=== PATIENT | female | born 1935 | race Caucasian/White ===

== ENCOUNTER 2017-09-29 22:03 | Emergency (ER) | payer OTHER ==
[~2017-09-29] VITALS: Ht 165.1 cm; Wt 60.6 kg
[2017-09-29 23:02] LABS: HEMATOCRIT 35.8 % (36.0-46.0); HEMOGLOBIN 12.2 G/DL (11.9-15.5); MCH 30.9 PG (29.0-34.0); MCHC 34.1 G/DL (30.0-36.0); MCV 90.6 FL (83-99); PLATELET COUNT 176 K/uL (156-360); RBC DIS.WIDTH-CV 13.4 % (11.8-14.6); RBC DIS.WIDTH-SD 44.8 % (39-53); RED BLOOD COUNT 3.95 M/uL (3.80-5.20); WHITE BLOOD COUNT 5.5 K/uL (4.1-10.2)
[2017-09-29 23:04] LABS: INTER. NORMALIZED RATIO 2.3
[2017-09-29 23:15] LABS: CHLORIDE 101 mEq/L (99-109); POTASSIUM 4.5 mEq/L (3.7-5.4); SODIUM 135 mEq/L (136-147)
[2017-09-29 23:17] LABS: GLUCOSE 117 mg/dL (70-99)
[2017-09-29 23:21] LABS: CREATININE 0.8 mg/dL (0.6-1.3); GFR ESTIMATE (CALCULATED) > 59 mL/min/
[2017-09-29 23:22] LABS: UREA NITROGEN (BUN) 17 mg/dL (9-23)
[2017-09-30 00:12] VITALS: BP 161/92
== END 2017-09-30 00:13 | disposition home or self-care (01) ==
LOC: EME 22:03
PROC: 0W3Q7ZZ Control Bleeding in Respiratory Tract, Via Natural or Artificial Opening (ICD-10-PCS; principal; 2017-09-29)
DX: R04.0 Epistaxis (principal); E03.9 Hypothyroidism, unspecified; I35.0 Nonrheumatic aortic (valve) stenosis; I48.91 Unspecified atrial fibrillation; Z79.01 Long term (current) use of anticoagulants; Z87.891 Personal history of nicotine dependence
CPT/HCPCS: 80048; 85027; 85610; 86850; 86900; 86901; 99281; 99283

== ENCOUNTER 2017-11-02 11:11 | Emergency (ER) | payer OTHER ==
[~2017-11-02] VITALS: Ht 165.1 cm; Wt 63.4 kg
[2017-11-02 14:31] VITALS: BP 164/76
== END 2017-11-02 14:49 | disposition home or self-care (01) ==
LOC: EME → EDBD 11:11 → EME 11:11
PROC: 0HQ1XZZ Repair Face Skin, External Approach (ICD-10-PCS; principal; 2017-11-02)
DX: S01.81XA Laceration without foreign body of other part of head, initial encounter (principal); S41.111A Laceration without foreign body of right upper arm, initial encounter; M25.511 Pain in right shoulder; W01.0XXA Fall on same level from slipping, tripping and stumbling without subsequent striking against object, initial encounter; Y92.512 Supermarket, store or market as the place of occurrence of the external cause; Z79.01 Long term (current) use of anticoagulants; Z87.891 Personal history of nicotine dependence
CPT/HCPCS: 70450; 73030; 73060; 73502; 99281; 99284

== ENCOUNTER 2017-11-12 15:34 | Inpatient (IN) | payer OTHER ==
[~2017-11-12] VITALS: Ht 165.1 cm; Wt 59.4 kg
[2017-11-12 16:19] LABS: HEMATOCRIT 34.2 % (36.0-46.0); HEMOGLOBIN 11.7 G/DL (11.9-15.5); MCH 30.5 PG (29.0-34.0); MCHC 34.2 G/DL (30.0-36.0); MCV 89.1 FL (83-99); PLATELET COUNT 193 K/uL (156-360); RBC DIS.WIDTH-CV 13.2 % (11.8-14.6); RBC DIS.WIDTH-SD 43.3 % (39-53); RED BLOOD COUNT 3.84 M/uL (3.80-5.20); WHITE BLOOD COUNT 6.4 K/uL (4.1-10.2)
[2017-11-12 16:27] LABS: ALBUMIN 3.9 g/dL (3.2-4.8); CHLORIDE 94 mEq/L (99-109); INTER. NORMALIZED RATIO 2.2; POTASSIUM 3.9 mEq/L (3.7-5.4); SODIUM 129 mEq/L (136-147)
[2017-11-12 16:29] LABS: GLUCOSE 99 mg/dL (70-99); TOTAL PROTEIN 7.3 g/dL (6.4-8.3)
[2017-11-12 16:31] LABS: TOTAL BILIRUBIN 0.5 mg/dL (0.0-1.0)
[2017-11-12 16:33] LABS: ALKALINE PHOSPHATASE 127 IU/L (3-129); CREATININE 0.7 mg/dL (0.6-1.3); GFR ESTIMATE (CALCULATED) > 59 mL/min/
[2017-11-12 16:34] LABS: UREA NITROGEN (BUN) 14 mg/dL (9-23)
[2017-11-12 16:35] LABS: AST (GOT) 15 IU/L (2-34)
[2017-11-12 16:36] LABS: ALT (GPT) 8 IU/L (3-49)
[2017-11-12] MEDS ORDERED: VERAPAMIL SR180 MG PO (16:42)
[2017-11-12] MEDS ORDERED: DIGOXIN125 MCG PO (16:43)
[2017-11-12] MEDS ORDERED: SERTRALINE HCL50 MG PO (16:43)
[2017-11-12] MEDS ORDERED: COUMADIN2 MG PO (16:58)
[2017-11-12] MEDS ORDERED: SYNTHROID100 MCG PO (17:01)
[2017-11-12] MEDS ORDERED: DIAZEPAM2 MG PO (17:01)
[2017-11-12 19:40] VITALS: BP 1160/74
[2017-11-12 20:41] LABS: HEMATOCRIT 34.2 % (36.0-46.0); HEMOGLOBIN 11.4 G/DL (11.9-15.5); MCH 29.8 PG (29.0-34.0); MCHC 33.3 G/DL (30.0-36.0); MCV 89.5 FL (83-99); PLATELET COUNT 205 K/uL (156-360); RBC DIS.WIDTH-CV 13.3 % (11.8-14.6); RBC DIS.WIDTH-SD 43.5 % (39-53); RED BLOOD COUNT 3.82 M/uL (3.80-5.20); WHITE BLOOD COUNT 5.4 K/uL (4.1-10.2)
[2017-11-12 21:01] LABS: TROP-I INTERPRETATION NEGATIVE; TROPONIN-I 0.09 ng/mL (0.0-0.30)
[2017-11-12 23:57] VITALS: BP 140/65
[2017-11-13 04:33] VITALS: BP 145/75
[2017-11-13 05:12] LABS: APPEARANCE CLEAR ((CLEAR)); BILIRUBIN NEGATIVE; BLOOD NEGATIVE; COLOR STRAW ((YELLOW)); GLUCOSE (STRIP) NEGATIVE; KETONES NEGATIVE; LEUKOCYTES NEGATIVE; NITRITE NEGATIVE; PROTEIN (STRIP) NEGATIVE; SPECIFIC GRAVITY 1.008 (1.000-1.030); UROBILINOGEN 0.2 MG/DL (0.2-1.0)
[2017-11-13 06:26] LABS: MCH 29.6 PG (29.0-34.0); MCHC 33.3 G/DL (30.0-36.0); MCV 88.7 FL (83-99); PLATELET COUNT 206 K/uL (156-360); RBC DIS.WIDTH-CV 13.3 % (11.8-14.6); RBC DIS.WIDTH-SD 43.5 % (39-53); RED BLOOD COUNT 3.72 M/uL (3.80-5.20)
[2017-11-13 06:50] LABS: CHLORIDE 101 MEQ/L (99-109); CREATININE 0.7 MG/DL (0.6-1.3); GFR ESTIMATE (CALCULATED) > 59 mL/min/; GLUCOSE 84 mg/dL (70-99); POTASSIUM 4.1 MEQ/L (3.7-5.4); SODIUM 134 MEQ/L (136-147); UREA NITROGEN (BUN) 14 mg/dL (9-23)
[2017-11-13 07:28] VITALS: BP 135/72
[2017-11-13 09:14] LABS: INTER. NORMALIZED RATIO 1.9
[2017-11-13 15:34] VITALS: BP 146/81
[2017-11-13 19:32] VITALS: BP 126/61
[2017-11-13 20:24] VITALS: BP 118/64
== END 2017-11-13 21:09 | disposition short-term general hospital (02) | DRG 536 ==
LOC: EME 15:34 → EDOF 16:45 → ENRESERV 16:58 → EDOF 18:51 → 3EAST 19:17
PROVIDERS: Hospitalist; Nurse Practitioner Family; Orthopaedic Surgery
DX: S72.001A Fracture of unspecified part of neck of right femur, initial encounter for closed fracture (principal); Z53.09 Procedure and treatment not carried out because of other contraindication; W18.30XA Fall on same level, unspecified, initial encounter; I48.2 Chronic atrial fibrillation; I27.20 Pulmonary hypertension, unspecified; I35.0 Nonrheumatic aortic (valve) stenosis; I10 Essential (primary) hypertension; D18.1 Lymphangioma, any site; E03.9 Hypothyroidism, unspecified; D64.9 Anemia, unspecified; F41.9 Anxiety disorder, unspecified; F32.9 Major depressive disorder, single episode, unspecified; Y92.512 Supermarket, store or market as the place of occurrence of the external cause; Z79.01 Long term (current) use of anticoagulants; Z87.442 Personal history of urinary calculi; Z87.891 Personal history of nicotine dependence
CPT/HCPCS: 70450; 71045; 72125; 72141; 80048; 80053; 80162; 81003; 82436; 83880; 83930; 84133; 84300; 84484; 85027; 85610; 85730; 86850; 86900; 86901; 93005; 93970; 99281; 99284; J0131; J0330; J3010; J7040

== ENCOUNTER 2017-12-05 11:16 | Inpatient (IN) | payer OTHER ==
[2017-12-05] VITALS (9 sets, daily range): BP systolic 112–169; BP diastolic 75–120
[~2017-12-05] VITALS: Ht 165.1 cm; Wt 67.1 kg
[~2017-12-05 11:16] MED LIST: CALAN SR,COVER180 MG PO; COUMADIN2 MG PO; DIAZEPAM2 MG PO; DIGOXIN125 MCG PO; SERTRALINE HCL50 MG PO; SYNTHROID100 MCG PO
[2017-12-05 11:57] LABS: INTER. NORMALIZED RATIO 3.6
[2017-12-05 12:00] LABS: PTT 42.9 SEC (25-37)
[2017-12-05 12:23] LABS: BASOPHIL (%) 0.2 % (0-1); EOSINOPHIL (%) 0.7 % (0-5); EOSINOPHIL COUNT 0.1 K/uL (0-0.3); HEMATOCRIT 26.5 % (36.0-46.0); IMMATURE GRANULOCYTE (%) 1.1 % (0.0-0.7); LYMPHOCYTE (%) 4.7 % (15-42); LYMPHOCYTE COUNT 0.6 K/uL (1.0-2.8); MCH 30.2 PG (29.0-34.0); MCV 88.9 FL (83-99); MONOCYTE (%) 7.2 % (3-12); MONOCYTE COUNT 0.9 K/uL (0-0.8); NEUTROPHIL (%) 86.1 % (45-76); NEUTROPHIL COUNT 10.4 K/uL (1.8-6.4); PLATELET COUNT 197 K/uL (156-360); RBC DIS.WIDTH-CV 14.3 % (11.8-14.6); RED BLOOD COUNT 2.98 M/uL (3.80-5.20); WHITE BLOOD COUNT 12.1 K/uL (4.1-10.2)
[2017-12-05 12:24] LABS: CHLORIDE 89 mEq/L (99-109); POTASSIUM 4.3 mEq/L (3.7-5.4); SODIUM 122 mEq/L (136-147)
[2017-12-05 12:26] LABS: GLUCOSE 110 mg/dL (70-99)
[2017-12-05 12:30] LABS: CREATININE 0.9 mg/dL (0.6-1.3); GFR ESTIMATE (CALCULATED) > 59 mL/min/
[2017-12-05 12:31] LABS: UREA NITROGEN (BUN) 18 mg/dL (9-23)
[2017-12-05 15:37] LABS: PTT 34.9 SEC (25-37)
[2017-12-05 15:40] LABS: INTER. NORMALIZED RATIO 1.3
[2017-12-05] MEDS ORDERED: LOVENOX30 MG/0.3 SC (15:52)
[2017-12-05] MEDS ORDERED: CALCIUM600 M1 PO (15:53)
[2017-12-05] MEDS ORDERED: COLACE100 MG PO (15:53)
[2017-12-05] MEDS ORDERED: VITAMIN B-12500 MC5 SL (15:53)
[2017-12-05] MEDS ORDERED: FERROUS SULFAT325 MG PO (15:55)
[2017-12-05] MEDS ORDERED: HYDRALAZINE HCL25 MG PO (15:56)
[2017-12-05] MEDS ORDERED: LASIX20 MG PO (15:57)
[2017-12-05] MEDS ORDERED: MIRALAX119 GM PO (15:57)
[2017-12-05] MEDS ORDERED: OXYCODONE HCL5 MG PO (15:58)
[2017-12-05] MEDS ORDERED: SENNA8.6 MG PO (15:58)
[2017-12-05] MEDS ORDERED: DULCOLAX10 MG PR (15:59)
[2017-12-05] MEDS ORDERED: TYLENOL REGULA325 MG PO (15:59)
[2017-12-05] MEDS ORDERED: PHILLIPS'400 MG/5 M PO (16:00)
[2017-12-05] MEDS ORDERED: ERGOCALCIF50000 UNIT PO (16:07)
[2017-12-05 18:53] LABS: CHLORIDE 91 MEQ/L (99-109); CREATININE 0.8 MG/DL (0.6-1.3); GFR ESTIMATE (CALCULATED) > 59 mL/min/; GLUCOSE 100 mg/dL (70-99); POTASSIUM 4.2 MEQ/L (3.7-5.4); SODIUM 122 MEQ/L (136-147); UREA NITROGEN (BUN) 17 mg/dL (9-23)
[2017-12-05 19:51] LABS: CHLORIDE 90 MEQ/L (99-109); CREATININE 0.8 MG/DL (0.6-1.3); GFR ESTIMATE (CALCULATED) > 59 mL/min/; GLUCOSE 94 mg/dL (70-99); POTASSIUM 4.3 MEQ/L (3.7-5.4); SODIUM 123 MEQ/L (136-147); UREA NITROGEN (BUN) 17 mg/dL (9-23)
[2017-12-05 23:30] LABS: INTER. NORMALIZED RATIO 1.2
[2017-12-06] VITALS (24 sets, daily range): BP systolic 93–127; BP diastolic 58–76
[2017-12-06 05:35] LABS: HEMATOCRIT 25.8 % (36.0-46.0); HEMOGLOBIN 8.7 G/DL (11.9-15.5); MCH 30.2 PG (29.0-34.0); MCHC 33.7 G/DL (30.0-36.0); MCV 89.6 FL (83-99); PLATELET COUNT 205 K/uL (156-360); RBC DIS.WIDTH-CV 14.5 % (11.8-14.6); RBC DIS.WIDTH-SD 46.4 % (39-53); RED BLOOD COUNT 2.88 M/uL (3.80-5.20); WHITE BLOOD COUNT 17.3 K/uL (4.1-10.2)
[2017-12-06 05:50] LABS: INTER. NORMALIZED RATIO 1.1
[2017-12-06 05:51] LABS: TROP-I INTERPRETATION NEGATIVE; TROPONIN-I 0.14 ng/mL (0.0-0.30)
[2017-12-06 06:02] LABS: CHLORIDE 92 MEQ/L (99-109); CREATININE 0.9 MG/DL (0.6-1.3); GFR ESTIMATE (CALCULATED) > 59 mL/min/; MAGNESIUM 1.8 mg/dl (1.3-2.7); PHOSPHORUS 4.3 mg/dL (2.5-4.9); POTASSIUM 4.2 MEQ/L (3.7-5.4); SODIUM 129 MEQ/L (136-147); UREA NITROGEN (BUN) 16 mg/dL (9-23)
[2017-12-06 06:06] LABS: GLUCOSE 149 mg/dL (70-99)
[2017-12-06 12:48] LABS: TROP-I INTERPRETATION NEGATIVE; TROPONIN-I 0.15 ng/mL (0.0-0.30)
[2017-12-06 18:56] LABS: TROP-I INTERPRETATION NEGATIVE; TROPONIN-I 0.14 ng/mL (0.0-0.30)
[2017-12-06 21:25] LABS: CHLORIDE 95 MEQ/L (99-109); CREATININE 0.8 MG/DL (0.6-1.3); GFR ESTIMATE (CALCULATED) > 59 mL/min/; GLUCOSE 132 mg/dL (70-99); POTASSIUM 4.7 MEQ/L (3.7-5.4); SODIUM 130 MEQ/L (136-147); UREA NITROGEN (BUN) 16 mg/dL (9-23)
[2017-12-07] VITALS (18 sets, daily range): BP systolic 88–119; BP diastolic 53–86
[2017-12-07 00:47] LABS: CHLORIDE 96 mEq/L (99-109); POTASSIUM 4.4 mEq/L (3.7-5.4); SODIUM 127 mEq/L (136-147)
[2017-12-07 00:49] LABS: GLUCOSE 112 mg/dL (70-99)
[2017-12-07 00:53] LABS: CREATININE 0.7 mg/dL (0.6-1.3); GFR ESTIMATE (CALCULATED) > 59 mL/min/; UREA NITROGEN (BUN) 18 mg/dL (9-23)
[2017-12-07 07:07] LABS: BASOPHIL (%) 0.3 % (0-1); EOSINOPHIL (%) 0.6 % (0-5); EOSINOPHIL COUNT 0.1 K/uL (0-0.3); HEMATOCRIT 24.9 % (36.0-46.0); HEMOGLOBIN 8.1 G/DL (11.9-15.5); IMMATURE GRANULOCYTE (%) 0.8 % (0.0-0.7); LYMPHOCYTE (%) 6.4 % (15-42); LYMPHOCYTE COUNT 0.8 K/uL (1.0-2.8); MCH 29.7 PG (29.0-34.0); MCHC 32.5 G/DL (30.0-36.0); MCV 91.2 FL (83-99); MONOCYTE (%) 8.5 % (3-12); MONOCYTE COUNT 1.1 K/uL (0-0.8); NEUTROPHIL (%) 83.4 % (45-76); NEUTROPHIL COUNT 10.7 K/uL (1.8-6.4); PLATELET COUNT 190 K/uL (156-360); RBC DIS.WIDTH-CV 15.1 % (11.8-14.6); RBC DIS.WIDTH-SD 49.1 % (39-53); RED BLOOD COUNT 2.73 M/uL (3.80-5.20); WHITE BLOOD COUNT 12.8 K/uL (4.1-10.2)
[2017-12-07 07:17] LABS: INTER. NORMALIZED RATIO 1.2
[2017-12-07 07:20] LABS: PTT 25.6 SEC (25-37)
[2017-12-07 07:29] LABS: CHLORIDE 96 MEQ/L (99-109); CREATININE 0.7 MG/DL (0.6-1.3); GFR ESTIMATE (CALCULATED) > 59 mL/min/; GLUCOSE 102 mg/dL (70-99); MAGNESIUM 1.8 mg/dl (1.3-2.7); POTASSIUM 4.3 MEQ/L (3.7-5.4); SODIUM 131 MEQ/L (136-147); UREA NITROGEN (BUN) 16 mg/dL (9-23)
[2017-12-07 07:30] LABS: PHOSPHORUS 2.7 mg/dL (2.5-4.9)
[2017-12-07 17:20] LABS: CHLORIDE 97 MEQ/L (99-109); CREATININE 0.7 MG/DL (0.6-1.3); GFR ESTIMATE (CALCULATED) > 59 mL/min/; GLUCOSE 94 mg/dL (70-99); POTASSIUM 4.1 MEQ/L (3.7-5.4); SODIUM 131 MEQ/L (136-147); UREA NITROGEN (BUN) 15 mg/dL (9-23)
[2017-12-08] VITALS (8 sets, daily range): BP systolic 96–132; BP diastolic 50–77
[2017-12-08 05:22] LABS: HEMATOCRIT 24.3 % (36.0-46.0); HEMOGLOBIN 7.9 G/DL (11.9-15.5); MCH 29.9 PG (29.0-34.0); MCHC 32.5 G/DL (30.0-36.0); PLATELET COUNT 193 K/uL (156-360); RBC DIS.WIDTH-CV 15.6 % (11.8-14.6); RBC DIS.WIDTH-SD 50.6 % (39-53); RED BLOOD COUNT 2.64 M/uL (3.80-5.20); WHITE BLOOD COUNT 11.2 K/uL (4.1-10.2)
[2017-12-08 05:53] LABS: CHLORIDE 98 MEQ/L (99-109); CREATININE 0.6 MG/DL (0.6-1.3); GFR ESTIMATE (CALCULATED) > 59 mL/min/; GLUCOSE 102 mg/dL (70-99); MAGNESIUM 1.9 mg/dl (1.3-2.7); PHOSPHORUS 1.9 mg/dL (2.5-4.9); POTASSIUM 4.1 MEQ/L (3.7-5.4); SODIUM 132 MEQ/L (136-147); UREA NITROGEN (BUN) 14 mg/dL (9-23)
[2017-12-08 05:55] LABS: INTER. NORMALIZED RATIO 1.6
[2017-12-08 19:11] LABS: CHLORIDE 98 MEQ/L (99-109); CREATININE 0.8 MG/DL (0.6-1.3); GFR ESTIMATE (CALCULATED) > 59 mL/min/; SODIUM 131 MEQ/L (136-147); UREA NITROGEN (BUN) 14 mg/dL (9-23)
[2017-12-08 19:14] LABS: GLUCOSE 164 mg/dL (70-99)
[2017-12-09] VITALS (7 sets, daily range): BP systolic 113–136; BP diastolic 64–89
[2017-12-09 05:27] LABS: HEMATOCRIT 25.6 % (36.0-46.0); HEMOGLOBIN 8.4 G/DL (11.9-15.5); MCH 30.3 PG (29.0-34.0); MCHC 32.8 G/DL (30.0-36.0); MCV 92.4 FL (83-99); PLATELET COUNT 199 K/uL (156-360); RBC DIS.WIDTH-CV 15.7 % (11.8-14.6); RBC DIS.WIDTH-SD 51.6 % (39-53); RED BLOOD COUNT 2.77 M/uL (3.80-5.20); WHITE BLOOD COUNT 13.7 K/uL (4.1-10.2)
[2017-12-09 05:39] LABS: INTER. NORMALIZED RATIO 2.5
[2017-12-09 06:16] LABS: CHLORIDE 96 MEQ/L (99-109); CREATININE 0.7 MG/DL (0.6-1.3); GFR ESTIMATE (CALCULATED) > 59 mL/min/; MAGNESIUM 1.8 mg/dl (1.3-2.7); PHOSPHORUS 1.8 mg/dL (2.5-4.9); POTASSIUM 3.9 MEQ/L (3.7-5.4); SODIUM 133 MEQ/L (136-147); UREA NITROGEN (BUN) 11 mg/dL (9-23)
[2017-12-09 06:19] LABS: GLUCOSE 118 mg/dL (70-99)
[2017-12-10 03:09] LABS: HEMATOCRIT 25.1 % (36.0-46.0); HEMOGLOBIN 8.4 G/DL (11.9-15.5); MCH 30.3 PG (29.0-34.0); MCHC 33.5 G/DL (30.0-36.0); MCV 90.6 FL (83-99); PLATELET COUNT 190 K/uL (156-360); RBC DIS.WIDTH-CV 15.3 % (11.8-14.6); RBC DIS.WIDTH-SD 50.4 % (39-53); RED BLOOD COUNT 2.77 M/uL (3.80-5.20); WHITE BLOOD COUNT 13.8 K/uL (4.1-10.2)
[2017-12-10 03:11] LABS: COMMENTS - BLOOD GASES C+A+; DEVICE HFC; O2 FLOW 7 L/MIN; SITE RR; TOTAL RESP RATE 22 resp/min
[2017-12-10 03:12] LABS: CARBOXY HGB 1.7 % (0-5); METHEMOGLOBIN 0.3 % (0-1.5); O2 SATURATION (CALCULATED) 95.3 % (95-99); PCO2 39 mm Hg (35-45); PO2 65 mm Hg (80-100); pH 7.48 (7.35-7.45)
[2017-12-10 03:13] LABS: BASE EXCESS 5.1 mEq/L (-3 to +3)
[2017-12-10 03:20] LABS: CHLORIDE 98 mEq/L (99-109); POTASSIUM 4.1 mEq/L (3.7-5.4)
[2017-12-10 03:21] LABS: SODIUM 135 mEq/L (136-147)
[2017-12-10 03:22] LABS: CHLORIDE 95 mEq/L (99-109); POTASSIUM 4.1 mEq/L (3.7-5.4); SODIUM 131 mEq/L (136-147)
[2017-12-10 03:23] LABS: GLUCOSE 116 mg/dL (70-99); MAGNESIUM 1.7 mg/dL (1.3-2.7); TOTAL PROTEIN 6.1 g/dL (6.4-8.3)
[2017-12-10 03:24] LABS: GLUCOSE 115 mg/dL (70-99)
[2017-12-10 03:25] LABS: TOTAL BILIRUBIN 0.5 mg/dL (0.0-1.0)
[2017-12-10 03:26] LABS: ALKALINE PHOSPHATASE 94 IU/L (3-129); CREATININE 0.7 mg/dL (0.6-1.3); GFR ESTIMATE (CALCULATED) > 59 mL/min/
[2017-12-10 03:28] LABS: AST (GOT) 24 IU/L (2-34); CREATININE 0.7 mg/dL (0.6-1.3); GFR ESTIMATE (CALCULATED) > 59 mL/min/; PHOSPHORUS 1.8 mg/dL (2.5-4.9); UREA NITROGEN (BUN) 12 mg/dL (9-23)
[2017-12-10 03:29] LABS: ALT (GPT) 9 IU/L (3-49); UREA NITROGEN (BUN) 11 mg/dL (9-23)
[2017-12-10 03:36] LABS: TROP-I INTERPRETATION NEGATIVE; TROPONIN-I 0.22 ng/mL (0.0-0.30)
[2017-12-10 04:04] VITALS: BP 124/74
[2017-12-10 08:16] VITALS: BP 124/80
[2017-12-10 12:15] VITALS: BP 114/75
[2017-12-10 16:12] VITALS: BP 115/67
[2017-12-10 20:14] VITALS: BP 122/70
[2017-12-11] VITALS (11 sets, daily range): BP systolic 113–138; BP diastolic 69–85
[2017-12-11 06:00] LABS: HEMOGLOBIN 7.5 G/DL (11.9-15.5); MCH 29.6 PG (29.0-34.0); MCHC 32.6 G/DL (30.0-36.0); MCV 90.9 FL (83-99); NRBC (%) 0.2 /100 WBC (0-0); PLATELET COUNT 177 K/uL (156-360); RBC DIS.WIDTH-CV 15.6 % (11.8-14.6); RBC DIS.WIDTH-SD 51.2 % (39-53); RED BLOOD COUNT 2.53 M/uL (3.80-5.20); WHITE BLOOD COUNT 11.5 K/uL (4.1-10.2)
[2017-12-11 06:19] LABS: CHLORIDE 93 MEQ/L (99-109); CREATININE 0.6 MG/DL (0.6-1.3); GFR ESTIMATE (CALCULATED) > 59 mL/min/; GLUCOSE 111 mg/dL (70-99); MAGNESIUM 1.7 mg/dl (1.3-2.7); PHOSPHORUS 2.3 mg/dL (2.5-4.9); POTASSIUM 4.1 MEQ/L (3.7-5.4); SODIUM 129 MEQ/L (136-147); UREA NITROGEN (BUN) 15 mg/dL (9-23)
[2017-12-12 00:35] VITALS: BP 122/67
[2017-12-12 01:35] VITALS: BP 125/79
[2017-12-12 03:52] VITALS: BP 119/68
[2017-12-12 06:45] LABS: HEMATOCRIT 33.1 % (36.0-46.0); MCH 28.6 PG (29.0-34.0); MCV 89.5 FL (83-99); PLATELET COUNT 189 K/uL (156-360); RBC DIS.WIDTH-CV 15.9 % (11.8-14.6); RBC DIS.WIDTH-SD 50.9 % (39-53); WHITE BLOOD COUNT 11.9 K/uL (4.1-10.2)
[2017-12-12 06:46] LABS: CHLORIDE 90 MEQ/L (99-109); CREATININE 0.6 MG/DL (0.6-1.3); GFR ESTIMATE (CALCULATED) > 59 mL/min/; GLUCOSE 128 mg/dL (70-99); MAGNESIUM 1.8 mg/dl (1.3-2.7); POTASSIUM 4.1 MEQ/L (3.7-5.4); SODIUM 129 MEQ/L (136-147); UREA NITROGEN (BUN) 16 mg/dL (9-23)
[2017-12-12 06:47] LABS: PHOSPHORUS 3.3 mg/dL (2.5-4.9)
[2017-12-12 06:51] LABS: HEMOGLOBIN 10.6 G/DL (11.9-15.5)
[2017-12-12 07:46] VITALS: BP 103/67
[2017-12-12] MEDS ORDERED: DUONEB 2.5-0.5 M3 ML AEROSOL (09:21)
[2017-12-12] MEDS ORDERED: LEVOFLOXACIN250 MG PO (09:21)
== END 2017-12-12 13:41 | DRG 25 ==
LOC: TRA 11:16 → EME 11:16 → 4WEST 15:27 → EDOF 15:27 → ENRESERV 15:33 → 4WEST 16:04 → ENRESERV 12-07 11:36 → CANRESERV 12-07 11:36 → 4WEST 12-09 09:52 → ENRESERV 12-09 09:55 → 5SOUTH 12-09 11:53
PROVIDERS: Emergency Medicine; Hospitalist; Internal Medicine Critical Care Medicine; Neurological Surgery
PROC: 00C40ZZ Extirpation of Matter from Intracranial Subdural Space, Open Approach (ICD-10-PCS; principal; 2017-12-05)
DX: S06.5X0A Traumatic subdural hemorrhage without loss of consciousness, initial encounter (principal); S06.1X0A Traumatic cerebral edema without loss of consciousness, initial encounter; W18.30XA Fall on same level, unspecified, initial encounter; E22.2 Syndrome of inappropriate secretion of antidiuretic hormone; S72.001D Fracture of unspecified part of neck of right femur, subsequent encounter for closed fracture with routine healing; I11.0 Hypertensive heart disease with heart failure; I50.9 Heart failure, unspecified; I35.0 Nonrheumatic aortic (valve) stenosis; I48.2 Chronic atrial fibrillation; D18.1 Lymphangioma, any site; R29.6 Repeated falls; E11.9 Type 2 diabetes mellitus without complications; I25.10 Atherosclerotic heart disease of native coronary artery without angina pectoris; R79.1 Abnormal coagulation profile; T45.515A Adverse effect of anticoagulants, initial encounter; E03.9 Hypothyroidism, unspecified; D64.9 Anemia, unspecified; F32.9 Major depressive disorder, single episode, unspecified; F41.9 Anxiety disorder, unspecified; M54.9 Dorsalgia, unspecified; R68.84 Jaw pain; Z86.73 Personal history of transient ischemic attack (TIA), and cerebral infarction without residual deficits; Z87.891 Personal history of nicotine dependence; Z66 Do not resuscitate
CPT/HCPCS: 36600; 70450; 71045; 71046; 80048; 80048 91; 80053; 82803; 83735; 83880; 84100; 84443; 84484; 85025; 85027; 85610; 85730; 86850; 86900; 86901; 86920; 87641; 93005; 93306; 93970; 94002; 94640; 94760; 94799; 97530 GO; 99281; 99285; C1713; C1753; C9132; J0690; J1100; J1165; J1940; J2270; J2405; J2710; J2930; J3010; J3430; J3480; J7030; J7050; J7643; P9016

== ENCOUNTER 2017-12-18 17:16 | Inpatient (IN) | payer OTHER ==
[~2017-12-18] VITALS: Ht 162.6 cm; Wt 66.1 kg
[~2017-12-18 17:16] MED LIST changes: +CALCIUM600 M1 PO; +COLACE100 MG PO; +DULCOLAX10 MG PR; +DUONEB 2.5-0.5 M3 ML AEROSOL; +ERGOCALCIF50000 UNIT PO; +FERROUS SULFAT325 MG PO; +HYDRALAZINE HCL25 MG PO; +LASIX20 MG PO; +LEVOFLOXACIN250 MG PO; +LOVENOX30 MG/0.3 SC; +MIRALAX119 GM PO; +OXYCODONE HCL5 MG PO; +PHILLIPS'400 MG/5 M PO; +SENNA8.6 MG PO; +TYLENOL REGULA325 MG PO; +VITAMIN B-12500 MC5 SL
[2017-12-18 17:45] LABS: BASOPHIL (%) 0.3 % (0-1); BASOPHIL COUNT 0.1 K/uL (0-0.1); EOSINOPHIL COUNT 0.5 K/uL (0-0.3); HEMATOCRIT 34.3 % (36.0-46.0); HEMOGLOBIN 11.2 G/DL (11.9-15.5); IMMATURE GRANULOCYTE (%) 3.6 % (0.0-0.7); LYMPHOCYTE (%) 13.2 % (15-42); LYMPHOCYTE COUNT 2.4 K/uL (1.0-2.8); MCH 29.9 PG (29.0-34.0); MCHC 32.7 G/DL (30.0-36.0); MCV 91.7 FL (83-99); MONOCYTE (%) 6.2 % (3-12); MONOCYTE COUNT 1.1 K/uL (0-0.8); NEUTROPHIL (%) 73.7 % (45-76); NEUTROPHIL COUNT 13.4 K/uL (1.8-6.4); PLATELET COUNT 333 K/uL (156-360); RBC DIS.WIDTH-CV 16.1 % (11.8-14.6); RBC DIS.WIDTH-SD 53.4 % (39-53); RED BLOOD COUNT 3.74 M/uL (3.80-5.20); WHITE BLOOD COUNT 18.1 K/uL (4.1-10.2)
[2017-12-18 17:57] LABS: ALBUMIN 3.3 g/dL (3.2-4.8); CHLORIDE 95 mEq/L (99-109); SODIUM 129 mEq/L (136-147)
[2017-12-18 17:59] LABS: POTASSIUM 4.7 mEq/L (3.7-5.4)
[2017-12-18 18:00] LABS: GLUCOSE 229 mg/dL (70-99); TOTAL PROTEIN 7.2 g/dL (6.4-8.3)
[2017-12-18 18:01] LABS: TOTAL BILIRUBIN 0.5 mg/dL (0.0-1.0)
[2017-12-18 18:03] LABS: ALKALINE PHOSPHATASE 138 IU/L (3-129); CREATININE 0.9 mg/dL (0.6-1.3); GFR ESTIMATE (CALCULATED) > 59 mL/min/
[2017-12-18 18:04] LABS: UREA NITROGEN (BUN) 13 mg/dL (9-23)
[2017-12-18 18:05] LABS: AST (GOT) 77 IU/L (2-34); DIRECT BILIRUBIN 0.3 mg/dL (0.0-0.3)
[2017-12-18 18:06] LABS: ALT (GPT) 61 IU/L (3-49)
[2017-12-18 18:12] LABS: TROP-I INTERPRETATION NEGATIVE; TROPONIN-I 0.09 ng/mL (0.0-0.30)
[2017-12-18 18:16] LABS: BICARBONATE 25.4 mEq/L (22-26); CARBOXY HGB 2.3 % (0-5); COMMENTS - BLOOD GASES C+; CONTINUOUS POS AIRWAY PRESSURE 5 cm H2O; DEVICE MASK VENT; FI02 100 %; MODE SPONT; O2 SATURATION (CALCULATED) 89.9 % (95-99); PCO2 41 mm Hg (35-45); PO2 52 mm Hg (80-100); PRES. SUPPORT 10 CM/H2O; SITE LR; TOTAL RESP RATE 16 resp/min
[2017-12-18 18:17] LABS: BASE EXCESS 0.5 mEq/L (-3 to +3)
[2017-12-18] MEDS ORDERED: LOVENOX30 MG/0.3 SC (19:17)
[2017-12-18] MEDS ORDERED: VALIUM5 MG PO (20:49)
[2017-12-18] MEDS ORDERED: MILK OF MAGN PO (20:54)
[2017-12-18] MEDS ORDERED: OXAYDO5 MG PO (21:00)
[2017-12-18] MEDS ORDERED: ZOLOFT25 MG PO (21:05)
[2017-12-18] MEDS ORDERED: TRAZODONE HCL50 MG PO (21:10)
[2017-12-18] MEDS ORDERED: LASIX20 MG PO (21:11)
[2017-12-18 23:31] LABS: COMMENTS - BLOOD GASES C+; DEVICE MASKVENT; FI02 100 %; MODE NSPONT; SITE RR; TOTAL RESP RATE 22 resp/min
[2017-12-18 23:32] LABS: BASE EXCESS 2.5 mEq/L (-3 to +3); BICARBONATE 26.3 mEq/L (22-26); CARBOXY HGB 2.1 % (0-5); METHEMOGLOBIN 0.9 % (0-1.5); PCO2 37 mm Hg (35-45); PEEP 10 CM/H20; PO2 71 mm Hg (80-100); PRES. SUPPORT 12 CM/H2O; pH 7.46 (7.35-7.45)
[2017-12-19] VITALS (42 sets, daily range): BP systolic 56–148; BP diastolic 38–113
[2017-12-19 05:08] LABS: COMMENTS - BLOOD GASES A+C+; DEVICE VENT; FI02 100 %; SITE RR
[2017-12-19 05:09] LABS: MODE SPONT PS; O2 SATURATION (CALCULATED) 98.8 % (95-99); PCO2 33 mm Hg (35-45); PEEP 7 CM/H20; PO2 193 mm Hg (80-100); PRES. SUPPORT 12 CM/H2O; TOTAL RESP RATE 30 resp/min; pH 7.49 (7.35-7.45)
[2017-12-19 05:10] LABS: BICARBONATE 25.1 mEq/L (22-26); CARBOXY HGB 1.7 % (0-5); METHEMOGLOBIN 0.5 % (0-1.5)
[2017-12-19 05:35] LABS: HEMATOCRIT 28.3 % (36.0-46.0); HEMOGLOBIN 9.4 G/DL (11.9-15.5); MCH 29.7 PG (29.0-34.0); MCHC 33.2 G/DL (30.0-36.0); MCV 89.6 FL (83-99); PLATELET COUNT 247 K/uL (156-360); RBC DIS.WIDTH-CV 15.9 % (11.8-14.6); RBC DIS.WIDTH-SD 51.5 % (39-53); RED BLOOD COUNT 3.16 M/uL (3.80-5.20)
[2017-12-19 06:02] LABS: CHLORIDE 95 MEQ/L (99-109); CREATININE 0.9 MG/DL (0.6-1.3); GFR ESTIMATE (CALCULATED) > 59 mL/min/; GLUCOSE 173 mg/dL (70-99); MAGNESIUM 1.9 mg/dl (1.3-2.7); PHOSPHORUS 4.4 mg/dL (2.5-4.9); SODIUM 130 MEQ/L (136-147); UREA NITROGEN (BUN) 16 mg/dL (9-23)
[2017-12-19 07:59] LABS: THYROTROPIN (TSH) 6.4 MIU/L (0.4-5.5)
[2017-12-20 12:08] LABS: HEMOGLOBIN A1c (GLYCOHEMOGLOB) 5.6 % (Below 5.7)
== END 2017-12-20 02:33 | DRG 189 ==
LOC: EME 17:16 → EDOF 20:26 → ENRESERV 20:28 → ENRESERVDT 21:09 → ENRESERV 21:09 → ENRESERVTM 21:09 → 4WEST 23:52
PROVIDERS: Emergency Medicine; Surgery
PROC: 5A09457 Assistance with Respiratory Ventilation, 24-96 Consecutive Hours, Continuous Positive Airway Pressure (ICD-10-PCS; principal; 2017-12-18)
DX: J96.01 Acute respiratory failure with hypoxia (principal); E87.70 Fluid overload, unspecified; J18.9 Pneumonia, unspecified organism; I95.9 Hypotension, unspecified; E87.2 Acidosis; I35.0 Nonrheumatic aortic (valve) stenosis; I48.2 Chronic atrial fibrillation; E87.1 Hypo-osmolality and hyponatremia; I10 Essential (primary) hypertension; S72.001D Fracture of unspecified part of neck of right femur, subsequent encounter for closed fracture with routine healing; D64.9 Anemia, unspecified; S06.5X9D Traumatic subdural hemorrhage with loss of consciousness of unspecified duration, subsequent encounter; E03.9 Hypothyroidism, unspecified; F32.9 Major depressive disorder, single episode, unspecified; Z66 Do not resuscitate; Z51.5 Encounter for palliative care; Z98.890 Other specified postprocedural states; Z87.891 Personal history of nicotine dependence; Z91.81 History of falling; Z90.710 Acquired absence of both cervix and uterus; Z88.0 Allergy status to penicillin; Z88.2 Allergy status to sulfonamides
CPT/HCPCS: 36600; 71045; 80048; 80076; 82330; 82607; 82948; 83036; 83605; 83735; 83880; 84100; 84439; 84443; 84484; 85025; 85027; 87040; 87641; 93005; 94002; 94003; 94640; 94760; 94799; 99281; 99285; J0692; J1160; J1940; J2060; J2270; J3010; J3370; J7030; J7050; P9047; S0028